=== PATIENT | male | born 1960 | race Caucasian/White ===

== ENCOUNTER 2022-07-26 07:00 | Observation (INO) | payer BC ==
[2022-07-26] MEDS ORDERED: Sodium Chloride 0.9% 1,000 ML IV ONE ×2 (07:21→09:17)
[2022-07-26 07:31] LABS: BASOPHILS ABSOLUTE AUTO 0.04 K/uL (0.02-0.10); BASOPHILS PERCENT AUTO 0.2 % (0.0-0.5); EOSINOPHILS ABSOLUTE AUTO 0.16 K/uL (0.04-0.40); HEMATOCRIT 43.2 % (40.0-54.0); HEMOGLOBIN 15.5 g/dL (13.0-18.0); LYMPHOCYTES ABSOLUTE AUTO 0.81 K/uL (1.50-4.00); LYMPHOCYTES PERCENT AUTO 4.9 % (20.0-40.0); MEAN CORPUSCULAR HGB CONC 35.9 g/dL (31.0-35.0); MEAN CORPUSCULAR VOLUME 89 fL (76-96); MEAN PLATELET VOLUME 10.1 fL (6.0-10.0); MONOCYTES ABSOLUTE AUTO 0.67 K/uL (0.20-0.80); NEUTROPHILS ABSOLUTE AUTO 14.88 K/uL (2.00-7.50); NEUTROPHILS PERCENT AUTO 89.9 % (45.0-70.0); PLATELET COUNT,PLT 229 K/uL (150-400); RED BLOOD CELL COUNT 4.84 M/uL (4.50-6.50); RED CELL DISTRIBUTION WIDTH 13.1 % (11.0-16.0); WHITE BLOOD CELL COUNT,WBC 16.6 K/uL (4.0-11.0)
[2022-07-26 07:45] LABS: A/G RATIO 1.1 (0.8-2.0); ALBUMIN 3.8 g/dL (3.4-5.0); ANION GAP 18.4 mmol/L (5.0-15.0); BILIRUBIN TOTAL 0.5 mg/dL (0.0-1.0); BUN/CREATININE RATIO 16.3 (6-25); CALCIUM 8.3 mg/dL (8.5-10.1); CARBON DIOXIDE,CO2 21.6 mmol/L (21.0-32.0); CREATININE 0.8 mg/dL (0.70-1.30); EST CRCL DRUG DOSING (CG) 102.66 mL/min; PROTEIN TOTAL,TP 7.2 g/dL (6.4-8.2)
[2022-07-26] MEDS ORDERED: Piperacillin/Tazobactam 4.5 GM in Sodium Chloride 0.9% 100 ML IV ONE (07:48)
[2022-07-26 07:50] LABS: PROTHROMBIN TIME 10.6 sec (9.0-11.5)
[2022-07-26 08:07] LABS: APPEARANCE,URINE CLEAR (CLEAR); BILIRUBIN,URINE NEGATIVE (NEGATIVE); COLOR,URINE YELLOW; GLUCOSE,URINE NEGATIVE (NEGATIVE); KETONES,URINE NEGATIVE (NEGATIVE); LEUKOCYTE ESTERASE,URINE NEGATIVE (NEGATIVE); NITRITE,URINE NEGATIVE (NEGATIVE); OCCULT BLOOD,URINE SMALL (NEGATIVE); PH,URINE 5.5 (5.0-8.0); PROTEIN,URINE NEGATIVE (NEGATIVE); UROBILINOGEN,URINE 0.2 E.U./dL (0.2-1.0)
[2022-07-26 08:10] LABS: RBC,URINE 0-5 /HPF; SQUAMOUS EPITHELIAL CELLS,UR OCCASIONAL /HPF; WBC,URINE NOT SEEN /HPF
[2022-07-26] MEDS ORDERED: Albuterol/Ipratropium 3.0-0.5 MG/3 ML Neb Soln NEB STA (08:58)
[2022-07-26] MEDS ORDERED: Ondansetron 4 MG/2 ML SDV IV PRN (09:39)
[2022-07-26] MEDS ORDERED: Albuterol 0.083% 2.5 MG/3 ML Neb Soln NEB PRN (11:30)
[2022-07-26] MEDS ORDERED: methylPREDNISolone Sodium Succinate 125 MG/2 ML SDV IV ONE (11:30)
[2022-07-26] MEDS ORDERED: Lactated Ringers 1,000 ML IV SCH (12:00)
[2022-07-26] MEDS: Albuterol/Ipratropium 3.0-0.5 MG/3 ML Neb Soln NEB SCH ×3 (13:30→20:56)
[2022-07-26] MEDS: Nicotine 21 MG/24 Hr Patch TRDERM SCH (13:37)
[2022-07-26] MEDS: Piperacillin/Tazobactam 3.375 GM in Sodium Chloride 0.9% 100 ML IV SCH ×2 (15:30→20:56)
[2022-07-26] MEDS ORDERED: Acetaminophen 325 MG Tab PO PRN (16:05)
[2022-07-27] MEDS: Piperacillin/Tazobactam 3.375 GM in Sodium Chloride 0.9% 100 ML IV SCH ×2 (01:29→07:29)
[2022-07-27 04:18] VITALS: BP 115/67; PULSE 63
[2022-07-27] MEDS: Nicotine 21 MG/24 Hr Patch TRDERM SCH (07:34)
[2022-07-27] MEDS: Albuterol/Ipratropium 3.0-0.5 MG/3 ML Neb Soln NEB SCH (07:36)
[2022-07-27] MEDS ORDERED: Furosemide 20 MG Tab PO SCH (08:00)
[2022-07-27] MEDS ORDERED: predniSONE 20 MG Tab PO SCH (08:00)
[2022-07-27 08:10] LABS: HEMATOCRIT 41.6 % (40.0-54.0); HEMOGLOBIN 14.6 g/dL (13.0-18.0); MEAN CORPUSCULAR HEMOGLOBIN 31.7 pg (27.0-32.0); MEAN CORPUSCULAR HGB CONC 35.1 g/dL (31.0-35.0); MEAN CORPUSCULAR VOLUME 90 fL (76-96); MEAN PLATELET VOLUME 10.2 fL (6.0-10.0); PLATELET COUNT,PLT 203 K/uL (150-400); RED CELL DISTRIBUTION WIDTH 13.1 % (11.0-16.0)
[2022-07-27 08:15] LABS: ANION GAP 13.4 mmol/L (5.0-15.0); BUN/CREATININE RATIO 17.6 (6-25); CALCIUM 8.7 mg/dL (8.5-10.1); CARBON DIOXIDE,CO2 25.7 mmol/L (21.0-32.0); CREATININE 0.85 mg/dL (0.70-1.30); EST CRCL DRUG DOSING (CG) 96.62 mL/min; POTASSIUM,K 4.1 mmol/L (3.5-5.1)
[2022-07-27 08:31] LABS: WHITE BLOOD CELL COUNT,WBC 21.9 K/uL (4.0-11.0)
[2022-07-27 09:17] LABS: GIANT PLATELETS OCCASIONAL
== END 2022-07-27 10:19 | disposition home or self-care (01) ==
LOC: LB.ED 07:00 → LB.MS 09:38 → LB.ED 10:24
PROVIDERS: ADMIT Physician Assistant; ATTEND Physician Assistant
DX: A41.9 Sepsis, unspecified organism (principal); J96.01 Acute respiratory failure with hypoxia; J18.9 Pneumonia, unspecified organism; F17.210 Nicotine dependence, cigarettes, uncomplicated; Z20.822 Contact with and (suspected) exposure to COVID-19; Z88.1 Allergy status to other antibiotic agents; Z79.899 Other long term (current) drug therapy
CPT/HCPCS: 36415; 71250; 80048; 80053; 80307; 81001; 82947; 83605; 83880; 84484; 85025; 85379; 85610; 85730; 87040; 93005; 94640; 96361; 96365; 96366; 96367; 96375; 99285-25; A0425; A0429; A9270-GY; G0378; G0379; J0456; J2543; J2930; J3490; J7030; J7120; J7512; J7620; U0002